=== PATIENT | male | born 1990 | race Caucasian/White ===

== ENCOUNTER 2017-10-20 08:30 | Emergency (ER) | payer OTHER ==
[~2017-10-20] VITALS: Ht 177.8 cm; Wt 149.7 kg
[~2017-10-20 08:30] MED LIST: NOHOMEMEDICATIONS; NORCO 5-325 TA1 EACH PO; PERCOCET 5-3251 EACH PO
[2017-10-20 08:55] LABS: URINE BLOOD 3+ (Negative); URINE CLARITY CLEAR; URINE COLOR YELLOW; URINE GLUCOSE-RANDOM NEGATIVE (Negative); URINE KETONES TRACE (Negative); URINE LEUKOCYTES-REFLEX NEGATIVE (Negative); URINE NITRITE-REFLEX NEGATIVE (Negative); URINE PROTEIN 2+ (Negative); URINE SPECIFIC GRAVITY >= 1.030 (1.005-1.030); URINE UROBILINOGEN 0.2 E.U./dl (0.2-1.0)
[2017-10-20 09:00] LABS: ICTOTEST (BILI CONFIRMATORY) Negative (Negative); URINE BILIRUBIN 1+ (Negative)
[2017-10-20 09:08] LABS: HEMATOCRIT 45.8 % (42.0-52.0); HEMOGLOBIN 15.1 gm/dL (14.0-18.0); MCH 28.1 pg (26.0-34.0); MCHC 32.9 g/dL (28.0-37.0); MCV 85.4 fL (80.0-100.0); NUCLEATED RBCS 0 /100WBC; PLATELET COUNT* 207 thou/uL (150-400); RBC 5.37 mil/uL (4.50-6.00); RDW-CV 14.1 % (10.5-14.5); WBC 13.3 thou/uL (4.0-11.0)
[2017-10-20 09:16] LABS: CALCIUM 9.2 mg/dL (8.5-10.1); CREATININE 1.1 mg/dL (0.6-1.3); POTASSIUM 3.9 mmol/L (3.5-5.1)
[2017-10-20 09:21] LABS: ALBUMIN 3.9 g/dL (3.4-5.0); TOTAL BILIRUBIN 0.5 mg/dL (<0.1-1.0); TOTAL PROTEIN 7.6 g/dL (6.4-8.2)
[2017-10-20 09:27] LABS: BACTERIA-REFLEX 1-9 Few /HPF (None Seen); CASTS None Seen /LPF (None Seen); MUCUS 0-3 Light strn/LPF (None Seen); SQUAMOUS 0-3 Few /LPF (0-3); URINE WBC-REFLEX 0-5 Rare /HPF (0-5)
[2017-10-20 09:28] LABS: CALCIUM OXALATE 0-3 Few /LPF (None Seen)
[2017-10-20 09:33] LABS: ABSOLUTE EOSINOPHILS 0.1 thou/uL (0.0-0.7); ABSOLUTE LYMPHOCYTES 1.7 thou/uL (0.8-5.3); ABSOLUTE MONOCYTES 0.3 thou/uL (0.0-1.2); ABSOLUTE NEUTROPHILS 11.2 thou/uL (1.6-8.1)
[2017-10-20 09:34] LABS: ANISOCYTOSIS 1+; PLATELET ESTIMATE ADEQUATE; POIKILOCYTOSIS 1+
[2017-10-20] MEDS ORDERED: NORCO 5-325 TA1 EACH PO ×2 (10:23)
[2017-10-20] MEDS ORDERED: TORADOL 10 MG T10 MG PO (10:23)
[2017-10-20] MEDS ORDERED: FLOMAX0.4 MG PO ×2 (10:23)
[2017-10-20 11:07] VITALS: BP 126/74
== END 2017-10-20 11:09 | disposition home or self-care (01) ==
LOC: M.ERS 08:30
PROVIDERS: Personal Emergency Response Attendant
DX: N23 Unspecified renal colic (principal); R11.2 Nausea with vomiting, unspecified; R61 Generalized hyperhidrosis

== ENCOUNTER 2017-10-20 19:23 | Inpatient (IN) | payer OTHER ==
[~2017-10-20] VITALS: Ht 152.4 cm; Wt 148.4 kg
[~2017-10-20 19:23] MED LIST changes: +FLOMAX0.4 MG PO; +TORADOL 10 MG T10 MG PO
[2017-10-20 19:28] VITALS: BP 141/88
[2017-10-20 21:28] LABS: HEMATOCRIT 43.6 % (42.0-52.0); HEMOGLOBIN 14.1 gm/dL (14.0-18.0); MCH 27.9 pg (26.0-34.0); MCHC 32.4 g/dL (28.0-37.0); MCV 86.1 fL (80.0-100.0); MPV 10.8 fl. (7.2-11.1); NUCLEATED RBCS 0 /100WBC; PLATELET COUNT* 201 thou/uL (150-400); RBC 5.06 mil/uL (4.50-6.00); RDW-CV 14.3 % (10.5-14.5); WBC 12.6 thou/uL (4.0-11.0)
[2017-10-20 21:35] LABS: CALCIUM 8.9 mg/dL (8.5-10.1); CREATININE 1.2 mg/dL (0.6-1.3); POTASSIUM 3.8 mmol/L (3.5-5.1)
[2017-10-20 22:06] VITALS: BP 143/90
[2017-10-20 22:21] LABS: ABSOLUTE LYMPHOCYTES 1.1 thou/uL (0.8-5.3); ABSOLUTE MONOCYTES 0.3 thou/uL (0.0-1.2); ABSOLUTE NEUTROPHILS 11.2 thou/uL (1.6-8.1); PLATELET ESTIMATE ADEQUATE
[2017-10-20 22:22] LABS: ANISOCYTOSIS Occasional
[2017-10-21 08:06] LABS: AMP/METHAMP Negative (Negative); BARBITURATES Negative (Negative); BENZODIAZEPINES Negative (Negative); COCAINE Negative (Negative); METHADONE Negative (Negative); OPIATES Negative (Negative); PCP Negative (Negative); THC Negative (Negative)
[2017-10-21 08:25] VITALS: BP 141/82
[2017-10-21 16:30] VITALS: BP 133/55
[2017-10-21 19:30] VITALS: BP 113/71
[2017-10-22 04:42] LABS: CALCIUM 8.1 mg/dL (8.5-10.1); CREATININE 1.3 mg/dL (0.6-1.3); POTASSIUM 4.3 mmol/L (3.5-5.1)
[2017-10-22 09:30] VITALS: BP 105/41
[2017-10-22 11:12] VITALS: BP 105/41
[2017-10-22] MEDS ORDERED: FLOMAX0.4 MG PO ×2 (11:57)
[2017-10-22] MEDS ORDERED: HYDROCODON-ACE1 EAC7 PO ×2 (11:57)
[2017-10-23] MEDS ORDERED: FLOMAX0.4 MG PO (05:47)
[2017-10-23] MEDS ORDERED: TORADOL 10 MG T10 MG PO (05:48)
[2017-10-23] MEDS ORDERED: HYDROCODON-ACE1 EAC7 PO (05:48)
--- NOTE | 2017-10-25 17:19 | CON ---
[address] [address] CONSULTATION Name: OLEKSANDR HUSAIN Room: [address]#: [id number] Admission: 10/20/17 Attend Phys: Tobin Heard MD Discharge: 10/22/17 Date of : 89 Report #: [id number] THIS REPORT FOR: //name// CC: Tobin Jackman DATE OF SERVICE: 10/21/2017 UROLOGY CONSULTATION REFERRING PHYSICIAN: Dr. Heard. REASON FOR CONSULTATION: Left ureteral calculus and flank pain. HISTORY OF PRESENT ILLNESS: This is a 27-year-old male who denies any prior stone history. He had fairly acute onset of left flank and left lower quadrant pain over the weekend. He was evaluated in the Emergency Department and diagnosed with a left proximal ureteral calculus. He was managed as an outpatient with medical expulsive therapy and returned on the same day due to recurrent unrelenting flank pain, nausea and vomiting. Denies dysuria, hematuria or difficulty voiding. Denies passage of fragments. Denies fever or chills. Denies any other recent illness. He has persistent flank pain that is controlled at this time. PAST MEDICAL HISTORY: As above. He states he is otherwise healthy and takes no routine pain medications. ALLERGIES: No known drug allergies. MEDICATIONS: Medications from his prior ER visit included hydrocodone, Toradol and Flomax. FAMILY HISTORY: His brother has had kidney stones. He does not know of any other stones or renal disease in the family. SOCIAL HISTORY: He denies use of tobacco or alcohol. REVIEW OF SYSTEMS: As per the history of present illness. He denies chest pain, shortness of breath, cough or palpitations. PHYSICAL EXAMINATION: VITAL SIGNS: Temperature is 36.6, pulse 81, respirations 16 and blood pressure 141/82. GENERAL: This is a 27-year-old male in no acute distress. He is awake, alert and oriented x 3. He answers questions appropriately. HEENT: Normocephalic, [place] [address] CONSULTATION Name: OLEKSANDR HUSAIN Room: [address]#: [id number] Admission: 10/20/17 Attend Phys: Tobin Heard MD Discharge: 10/22/17 Date of : 89 Report #: [id number] NECK: Supple. No JVD. RESPIRATORY: Effort and excursion are normal. CHEST WALL: Nontender. CARDIOVASCULAR: Rhythm is regular. Radial pulses are palpable. EXTREMITIES: Warm. He moves all extremities well. No peripheral edema. MUSCULOSKELETAL: Spine is nontender. Left costovertebral angle is tender; the right side is not. ABDOMEN: Soft and nondistended. Bladder is nonpalpable. There is no suprapubic tenderness. He has tenderness in the left lower quadrant and flank, with no guarding or rebound. GENITOURINARY: Skin of the penis and scrotum is normal. Testes are nontender, with no palpable masses. Urethral meatus is orthotopic. LABORATORY DATA: Laboratory studies included sodium 140, potassium 3.8, chloride 105, CO2 of 25, BUN 16, creatinine 1.2 and glucose 111. Hemoglobin 14.1, white count 12.6 and platelet count 201,000. Urinalysis revealed 0-5 white cells, 11-20 red cells and a few bacteria. I have ordered a urine culture. Noncontrast CT scan of the abdomen and pelvis report and images were reviewed. This reveals a 3-mm left ureteral calculus at the L4 level with hydronephrosis. There is also a fat-containing left inguinal hernia noted. The patient was advised about the hernia and advised to follow up with his primary care physician regarding that. Options for management were discussed, including medical expulsive therapy as an inpatient or outpatient, outpatient ESWL, ureteroscopic stone manipulation, retrograde pyelogram and stent placement as an inpatient or outpatient. Pros and cons of those approaches as well as risks were explained. Given that the patient failed outpatient management after his first ER visit, he is in favor of a trial of inpatient medical expulsive therapy. We will obtain a KUB to see if his stone is visible for potential shockwave lithotripsy. We will check a culture. Strain urine for stones. Repeat a BMP tomorrow. We will continue Flomax and start a regular diet, with plans to be n.p.o. after midnight in case intervention is needed. IMPRESSION: Left proximal ureteral calculus. PLAN: Medical expulsive therapy as above. Check lab and KUB. N.p.o. after midnight. <ELECTRONICALLY SIGNED> By: Gasper Driscoll MD 10/25/17 1719 1202 [id number] Driscoll MD /nt
== END 2017-10-22 13:30 | disposition home or self-care (01) | DRG 694 ==
LOC: M.ERS 19:23 → M.TBA-ER 21:37 → M.ORTHSURG 21:37
PROVIDERS: Emergency Medicine Emergency Medical Services; Nurse Practitioner Family; Urology; ADMIT Internal Medicine
DX: N20.2 Calculus of kidney with calculus of ureter (principal); Z68.44 Body mass index [BMI] 60.0-69.9, adult; F17.210 Nicotine dependence, cigarettes, uncomplicated; E66.01 Morbid (severe) obesity due to excess calories; Z87.442 Personal history of urinary calculi; Z79.899 Other long term (current) drug therapy; Z84.1 Family history of disorders of kidney and ureter

== ENCOUNTER 2017-10-23 03:05 | Inpatient (IN) | payer OTHER ==
[2017-10-23] VITALS (8 sets, daily range): BP systolic 114–147; BP diastolic 55–86
[~2017-10-23] VITALS: Ht 177.8 cm; Wt 149.7 kg
[~2017-10-23 03:05] MED LIST changes: +HYDROCODON-ACE1 EAC7 PO
[2017-10-23 03:40] LABS: URINE BILIRUBIN NEGATIVE (Negative); URINE BLOOD 1+ (Negative); URINE CLARITY CLEAR; URINE COLOR YELLOW; URINE GLUCOSE-RANDOM NEGATIVE (Negative); URINE KETONES NEGATIVE (Negative); URINE LEUKOCYTES-REFLEX NEGATIVE (Negative); URINE NITRITE-REFLEX NEGATIVE (Negative); URINE PROTEIN NEGATIVE (Negative); URINE UROBILINOGEN 0.2 E.U./dl (0.2-1.0)
[2017-10-23 03:59] LABS: CASTS None Seen /LPF (None Seen); MUCUS 0-3 Light strn/LPF (None Seen); SQUAMOUS 0-3 Few /LPF (0-3)
[2017-10-23 04:00] LABS: BACTERIA-REFLEX 1-9 Few /HPF (None Seen); CRYSTALS None Seen /LPF (None Seen); URINE RBC 3-10 Few /HPF (0-2); URINE WBC-REFLEX 0-5 Rare /HPF (0-5)
[2017-10-23 04:59] LABS: ABSOLUTE EOSINOPHILS 0.1 thou/uL (0.0-0.7); ABSOLUTE LYMPHOCYTES 1.9 thou/uL (0.8-5.3); ABSOLUTE MONOCYTES 0.6 thou/uL (0.0-1.2); ABSOLUTE NEUTROPHILS 7.7 thou/uL (1.6-8.1); BASOPHILS 0.3 %; EOSINOPHILS 0.9 %; HEMATOCRIT 44.8 % (42.0-52.0); HEMOGLOBIN 14.6 gm/dL (14.0-18.0); LYMPHOCYTES 18.5 %; MCH 28.2 pg (26.0-34.0); MCHC 32.6 g/dL (28.0-37.0); MCV 86.4 fL (80.0-100.0); MONOCYTES 5.7 %; MPV 11.3 fl. (7.2-11.1); NUCLEATED RBCS 0 /100WBC; PLATELET COUNT* 214 thou/uL (150-400); POLYS 74.6 %; RBC 5.18 mil/uL (4.50-6.00); RDW-CV 14.2 % (10.5-14.5); WBC 10.3 thou/uL (4.0-11.0)
[2017-10-23 05:02] LABS: CALCIUM 8.9 mg/dL (8.5-10.1); CREATININE 0.9 mg/dL (0.6-1.3); POTASSIUM 3.9 mmol/L (3.5-5.1)
[2017-10-23] MEDS ORDERED: FLOMAX0.4 MG PO (05:47)
[2017-10-23] MEDS ORDERED: TORADOL 10 MG T10 MG PO (05:48)
[2017-10-23] MEDS ORDERED: HYDROCODON-ACE1 EAC7 PO (05:48)
--- NOTE | 2017-10-23 06:00 | NUR ---
ASSUMED CARE OF PATIENT FROM ER, ADMISSION COMPLETED. MOTHER AT BEDSIDE. MED/SURG. ON ROOM AIR. IVF INFUSING TO RIGHT HAND PER MAR. PATIENT STATES HAVING PAIN TO LEFT LOWER QUAD, MEDS PER MAR WITH RELIEF NOTED. NPO. REFUSING SCD'S. VOIDING PER URINAL, STRAINING URINE. DENIES NEEDS. CALL LIGHT WITHIN REACH, ENCOURAGED TO CALL FOR NEEDS.
--- NOTE | 2017-10-23 07:38 | NUR ---
PATIENT TRANSFERRED TO ROOM 308 AT THIS TIME WITH ALL BELONGINGS AT SIDE, STATES THAT HE NOTIFIED HIS MOM THAT HE TRANSFERRED. REPORT GIVEN TO KAREY CRANE.
--- NOTE | 2017-10-23 13:12 | NUR ---
Nutrition: RD saw pt two days ago. Pt was here for kidney stone; is back now with worsening pain. Seen for BMI >40. Pt is currently NPO. Two days ago, we briefly discussed good diet for renal stones, wt loss, hydration. No weight changes. BG 101, albumin 3.9. No interventions needed today. Mild nutrition risk.
--- NOTE | 2017-10-23 13:19 | NUR ---
TRANSFERRED TO ROOM 308 THIS MORNING, NO DISTRESS NOTED, VICTORIA IVF WELL, MORPHINE ADMIN FOR PAIN CONTROL. TO PRE-OP FOR PROCEDURE, POSSIBLY REGARDING 3 MM KIDNEY STONE. CONT POC.
--- NOTE | 2017-10-23 18:48 | NUR ---
VICTORIA CYSTOSCOPY WELL, VOIDING PINK TINGED URINE IN MOD AMT, STRAINED FOR STONE, PAIN CONTROLLED WELL W/ ORAL MEDICATION, UP AD TASHA, ANTICIPATE DISCHARGE TOMORROW, CONT POC.
--- NOTE | 2017-10-24 06:14 | NUR ---
PATIENT SLEPT PART OF THE NIGHT. IV FLUIDS CONTINUE TO INFUSE AT 130 ML/HR. PATIENT WAS GIVEN PAIN MEDICINE TWICE THIS SHIFT. PATIENT IS POSSIBLY GOING HOME TODAY. WILL CONTINUE TO MONITOR.
[2017-10-24 08:25] VITALS: BP 106/51
[2017-10-24] MEDS ORDERED: PHENAZOPYRIDIN200 M2 PO (09:40)
[2017-10-24] MEDS ORDERED: LEVSIN0.125 MG PO (09:40)
[2017-10-24 11:17] VITALS: BP 106/51
--- NOTE | 2017-10-24 11:31 | NUR ---
SW met with pt to complete initial assessment, introduce self, and SW role. Pt alert, oriented. Pt is fairly independent at home and does not anticipate having any dc needs at this time. Pt mother lives nearby and is supportive. Pt says he is discussing FMLA paperwork. SW to continue to follow to assist with safe dc planning.
[2017-10-24] MEDS ORDERED: PERCOCET PO (12:08)
--- NOTE | 2017-10-24 12:42 | NUR ---
PATIENT URINE STRAINED ORDERED, URINE REMAINED BLOOD TINGED AND DARK YELLOW. PRN PERCOCET AND PYRIDUIM GIVEN THIS AM, GOOD RELIEF NOTED. IV DC'D. TOLERATING REG DIET. VERBALIZES UNDERSTANDING OF PAPERWORK AND SCRIPTS. PATIENT AMBULATED OUT WITH NURSING STAFF AND ALL BELONGINGS.
--- NOTE | 2017-11-10 14:26 | OP ---
[facility] [address] [place] [address] OPERATIVE REPORT Name: OLEKSANDR HUSAIN Room: [address] [place] .R.#: [id number] Admission: 10/23/17 Attend Phys: Deepika Arora Discharge: 10/24/17 Date of : 89 Report #: [id number] THIS REPORT FOR: //name// CC: Giuseppe Gillespie DATE OF SERVICE: 10/23/2017 PREOPERATIVE DIAGNOSIS: Left ureteral stone. POSTOPERATIVE DIAGNOSES: 1. Left ureteral stone. 2. Left ureteral stenosis. PROCEDURE PERFORMED: Cystoscopy, left retrograde pyelogram, ureteroscopy and stent placement. SURGEON: Devaughn Kevin MD. ANESTHESIA: General. ESTIMATED BLOOD LOSS: Minimal. COMPLICATIONS: None. INDICATION FOR PROCEDURE: A 27-year-old gentleman who presented with a 3-mm left proximal ureteral stone. He has had intermittent pain. He was actually scheduled for surgery yesterday, but he canceled because he was feeling better. Unfortunately, he has had recurrence of his pain and he now presents for definitive management of his stone. The risks, benefits and possible complications and options were discussed in detail with the patient and his family. The patient elected to proceed with ureteroscopy, laser lithotripsy and stent. Risks, benefits, possible complications, which include but not limited to bleeding, infection, damage to surrounding organs such as urethra, the bladder, the ureter, development of ureteral stricture, inability to treat stone a second in a single setting, requiring secondary procedures, stent irritation and complications from general anesthesia were all reviewed in detail. Given chance to ask questions, which were answered to satisfaction, he elected to proceed. DESCRIPTION OF PROCEDURE: After obtaining informed consent, the patient was taken to the operating room and placed in supine position. After adequate general anesthesia and IV antibiotics, he was prepped and draped in the standard sterile fashion. A 21-Jamaican cystoscope 30-degree lens was introduced in the anterior urethra, normal caliber, down the prostatic urethra. The patient had a mildly high bladder neck. Upon entering the bladder, [place] [id number] OPERATIVE REPORT Name: OLEKSANDR HUSAIN Room: [address] [place] [facility]#: [id number] Admission: 10/23/17 Attend Phys: Deepika Arora Discharge: 10/24/17 Date of : 89 Report #: [id number] systematically inspected. There were no stones, tumors or diverticula. The left ureteral orifice was cannulated with a 5-Jamaican open-ended ureteral catheter and a retrograde pyelogram was performed. There was a filling defect just above the pelvic brim in the left ureter. There was some mild hot proximal hydroureter. The distal ureter showed some mild narrowing, so a guidewire was placed in retrograde fashion. An 01/21 ureteral access sheath with just the 11-Jamaican obturator was gently passed over the wire and passed easily into the distal ureter under fluoroscopic guidance. The access sheath was then placed. A second wire was placed as a safety wire and flexible ureteroscopy was carried out. The scope was able to be passed about 3-4 cm into the ureter and met moderate resistance. It would not pass easily, so it was determined that a stent would be placed for passive dilation and attempts at ureteroscopy would be planned in 1-2 weeks. Of note, the area of stenosis was about 2-3 cm distal to the stone as visualized on a retrograde pyelogram. The cystoscope was replaced in the bladder and a 4.8 x 28 cm double-J stent was passed in retrograde fashion over the wire. Good coil was noted overlying the renal pelvis under fluoroscopy and a good coil was directly visualized the bladder. The bladder was drained. Uro-Jet was applied per urethra. A B and O suppository was placed per rectum. The patient was extubated and taken to recovery room in good condition. Plan is to tentatively schedule for ureteroscopy, laser lithotripsy and stent in approximately 1-2 weeks. <ELECTRONICALLY SIGNED> By: Devaughn Kevin MD 11/10/17 1426 1504 [id number] Kevin MD /nt
== END 2017-10-24 12:46 | disposition home or self-care (01) | DRG 694 ==
LOC: M.ERS 03:05 → M.3W 04:42 → M.TBA-ER 04:42 → M.2W 05:04 → M.3W 07:29
PROVIDERS: Emergency Medicine; ADMIT Internal Medicine
PROC: 0T778DZ Dilation of Left Ureter with Intraluminal Device, Via Natural or Artificial Opening Endoscopic (ICD-10-PCS; principal; 2017-10-23)
PROC: BT1F1ZZ Fluoroscopy of Left Kidney, Ureter and Bladder using Low Osmolar Contrast (ICD-10-PCS; principal; 2017-10-23)
DX: N13.2 Hydronephrosis with renal and ureteral calculous obstruction (principal); F17.210 Nicotine dependence, cigarettes, uncomplicated; Z84.1 Family history of disorders of kidney and ureter

== ENCOUNTER 2021-03-13 21:55 | Inpatient (IN) | payer OTHER ==
[~2021-03-13] VITALS: Ht 175.3 cm; Wt 154.2 kg
[~2021-03-13 21:55] MED LIST changes: +LEVSIN0.125 MG PO; +PERCOCET PO; +PHENAZOPYRIDIN200 M2 PO
[2021-03-13 22:06] VITALS: BP 138/76
[2021-03-13] MEDS ORDERED: TESSALON PERLE100 MG PO (22:12)
[2021-03-13] MEDS ORDERED: PROAIR HFA8.5 GM INH (22:12)
[2021-03-13] MEDS ORDERED: ZPAK PO (22:13)
[2021-03-13 23:39] LABS: ABSOLUTE EOSINOPHILS 0.1 thou/uL (0.0-0.7); ABSOLUTE LYMPHOCYTES 1.4 thou/uL (0.8-5.3); ABSOLUTE MONOCYTES 0.3 thou/uL (0.0-1.2); ABSOLUTE NEUTROPHILS 4.9 thou/uL (1.6-8.1); BASOPHILS 0.5 %; EOSINOPHILS 1.8 %; HEMATOCRIT 29.9 % (42.0-52.0); HEMOGLOBIN 9.8 gm/dL (14.0-18.0); LYMPHOCYTES 21.3 %; MCH 27.8 pg (26.0-34.0); MCHC 32.9 g/dL (28.0-37.0); MCV 84.6 fL (80.0-100.0); MONOCYTES 4.4 %; MPV 10.3 fl. (7.2-11.1); NUCLEATED RBCS 0 /100WBC; PLATELET COUNT* 141 thou/uL (150-400); RBC 3.54 mil/uL (4.50-6.00); RDW-CV 14.1 % (10.5-14.5); WBC 6.8 thou/uL (4.0-11.0)
[2021-03-13 23:47] LABS: CREATININE 0.6 mg/dL (0.6-1.3)
[2021-03-13 23:57] LABS: ALBUMIN 2.2 g/dL (3.4-5.0); MAGNESIUM 1.1 mg/dL (1.8-2.4); TOTAL BILIRUBIN 0.4 mg/dL (<0.1-1.0); TOTAL PROTEIN 4.6 g/dL (6.4-8.2)
[2021-03-14] LABS: CALCIUM 5.3 mg/dL (8.5-10.1); POTASSIUM 2.1 mmol/L (3.5-5.1)
[2021-03-14 02:06] LABS: INFLUENZA A ANTIGEN Negative (Negative); INFLUENZA B ANTIGEN Negative (Negative)
[2021-03-14 04:52] VITALS: BP 126/70
[2021-03-14 09:37] LABS: CALCIUM 8.3 mg/dL (8.5-10.1); POTASSIUM 4.5 mmol/L (3.5-5.1)
[2021-03-14 10:14] VITALS: BP 126/70
--- NOTE | 2021-03-14 10:40 | EKG ---
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: LENIN : 1990 Requested By: Surinder Patel Order Number: [id number] MD: Basil Little Measurements Intervals [place] Rate: 113 P: 25 AL: 131 QRS: 41 QRSD: 104 T: 7 QT: 331 QTc: 454 Interpretive Statements Sinus tachycardia Baseline wander in lead(s) V4,V5,V6 Compared to ECG 10/31/2010 07:31:39 Sinus bradycardia no longer present Sinus arrhythmia no longer present Electronically Signed On 03-14-2021 10:40:29 [employer] SPECIALIST by Basil Little [email or web address] <ELECTRONICALLY SIGNED> By: Basil Little MD, FACC 03/14/21 1040 08 08 Basil Little MD, FACC /EPI
[2021-03-14 11:05] VITALS: BP 126/70
[2021-03-14 11:18] VITALS: BP 126/70
== END 2021-03-14 11:17 | disposition home or self-care (01) | DRG 313 ==
LOC: M.ERS 21:55 → M.TBA-ER 03-14 00:53
PROVIDERS: Emergency Medicine Emergency Medical Services; Family Medicine; ADMIT Internal Medicine; ATTEND Internal Medicine
DX: R07.89 Other chest pain (principal); E87.0 Hyperosmolality and hypernatremia; E86.0 Dehydration; E87.6 Hypokalemia; Z20.822 Contact with and (suspected) exposure to COVID-19; E83.51 Hypocalcemia; E83.42 Hypomagnesemia; D64.9 Anemia, unspecified; D69.6 Thrombocytopenia, unspecified; Z87.442 Personal history of urinary calculi